=== PATIENT | male | born 1985 | race Caucasian/White ===

== ENCOUNTER 2024-01-13 06:54 | Emergency (ER) | payer OTHER ==
[2024-01-13 07:16] VITALS: RESP 18; BMI 29.3
[2024-01-13] MEDS ORDERED: MECLIZINE HCL 25 MG TABLET (FP) ONE (08:41)
[2024-01-13 08:45] LABS: BASO % 0.6 % (0-2.0); EOS % 3.4 % (0-4.5); HEMATOCRIT 46.9 % (35.4-49); LYMPH % 34.1 % (8-40); MCH 32.1 pg (25.7-33.7); MCHC 34.1 g/dl (32.0-35.9); MEAN CELL VOLUME 93.9 fl (80-96); MEAN PLT VOLUME 7.1 fl (7.5-11.1); MONO % 7.4 % (3.8-10.2); NEUT % 54.5 % (42.8-82.8); PLATELET COUNT 269 10^3/uL (134-434); RBC 4.99 M/mm3 (4.00-5.60); RDW 12.8 % (11.9-15.9); WHITE BLOOD COUNT 5.8 K/mm3 (4.0-10.0)
[2024-01-13] MEDS: SODIUM CHLORIDE 1,000 ML IV STA (08:49)
[2024-01-13] MEDS: MECLIZINE HCL 25 MG TABLET (FP) PO ONE (08:49)
[2024-01-13 08:58] LABS: EPI CELLS 1 /uL (0-25.1); HYALINE CASTS 0 /uL (0-3.1); PH,URINE 5.5 (5.0-8.0); URINE APPEARANCE CLEAR; URINE BACTERIA 1 /uL (0-1359); URINE BILIRUBIN NEGATIVE (NEGATIVE); URINE COLOR YELLOW; URINE GLUCOSE (UA) NEGATIVE (NEGATIVE); URINE KETONE NEGATIVE (NEGATIVE); URINE LEUK ESTERASE NEGATIVE (NEGATIVE); URINE NITRITE NEGATIVE (NEGATIVE); URINE PROTEIN 2+ (NEGATIVE); URINE RBC 48 /uL (0-23.9); URINE UROBILINOGEN 0.2 mg/dL (0.2-1.0); URINE WBC 4 /uL (0-25.8)
[2024-01-13 09:09] LABS: INR 0.89 (0.83-1.09); PROTHROMBIN TIME (PATIENT) 10.3 SEC (9.7-13.0)
[2024-01-13 09:13] LABS: POTASSIUM 4.7 mmol/L (3.5-5.1)
[2024-01-13 09:15] LABS: CALCIUM 9.4 mg/dL (8.5-10.1)
[2024-01-13 09:16] LABS: ALBUMIN 4.2 g/dl (3.4-5.0); MAGNESIUM 2.3 mg/dL (1.8-2.4)
[2024-01-13 09:19] LABS: CREATININE 0.7 mg/dL (0.55-1.3)
[2024-01-13 09:21] LABS: BILIRUBIN,TOTAL 0.5 mg/dL (0.2-1); BLOOD UREA NITROGEN 25.9 mg/dL (7-18); TOT PROT 7.7 g/dl (6.4-8.2)
[2024-01-13 09:46] VITALS: BP 129/85; PULSE 74; TEMP 98.8
== END 2024-01-13 09:46 | disposition home or self-care (01) ==
LOC: JER 06:54
PROC: 3E0337Z Introduction of Electrolytic and Water Balance Substance into Peripheral Vein, Percutaneous Approach (ICD-10-PCS; principal; 2024-01-13)
DX: R42 Dizziness and giddiness (principal); R80.8 Other proteinuria
CPT/HCPCS: 36415; 70450-TC; 80053; 81003; 83735; 84484; 85025; 85610; 85730; 93005; 93010; 99285-25

== ENCOUNTER 2024-01-14 12:36 | Emergency (ER) | payer OTHER ==
[2024-01-14 12:42] VITALS: BP 128/86; PULSE 72; RESP 18; TEMP 98; BMI 29.3
[2024-01-14] MEDS: ACETAMINOPHEN 1000 MG/100 ML BAG IVPB ONE (13:30)
[2024-01-14] MEDS: METOCLOPRAMIDE HCL INJECTION 10 MG/2 ML VIAL IVPUSH ONE (13:30)
[2024-01-14] MEDS: LACTATED RINGERS SOLUTION 1000 ML INFUS.BAG IV ONE (13:30)
[2024-01-14] MEDS ORDERED: ACETAMINOPHEN INJECTION 100 ML IVPB ONE (13:33)
[2024-01-14] MEDS ORDERED: METOCLOPRAMIDE HCL INJECTION 10 MG/2 ML VIAL ONE (13:33)
== END 2024-01-14 14:45 | disposition home or self-care (01) ==
LOC: JER 12:36
PROC: 3E033NZ Introduction of Analgesics, Hypnotics, Sedatives into Peripheral Vein, Percutaneous Approach (ICD-10-PCS; principal; 2024-01-14)
PROC: 3E033GC Introduction of Other Therapeutic Substance into Peripheral Vein, Percutaneous Approach (ICD-10-PCS; 2024-01-14)
DX: R42 Dizziness and giddiness (principal); R51.9 Headache, unspecified
CPT/HCPCS: 99284-25; J0131